=== PATIENT | female | born 1975 | race Caucasian/White ===

== ENCOUNTER 2020-08-13 13:00 | Outpatient (CLI) | payer OTHER ==
[~2020-08-13] VITALS: Ht 157.5 cm; Wt 99.1 kg
[2020-08-13 13:20] VITALS: Ht 157.5 cm; Wt 99.1 kg
== END 2020-08-13 13:01 | disposition home or self-care (01) ==
LOC: D.SP 13:00
PROVIDERS: ATTEND Anesthesiology
DX: G57.01 Lesion of sciatic nerve, right lower limb (principal); I10 Essential (primary) hypertension